=== PATIENT | female | born 1975 | race Caucasian/White ===

== ENCOUNTER 2024-04-11 08:25 | Outpatient (CLI) | payer OTHER, SELFPAY ==
--- NOTE | 2024-05-01 17:01 | P.SLEEP_ITS ---
Sleep Study - Home Unattended Date of Study: 04/11/24 Ordering Provider: Laura Adorno DO Interpreting Provider: Laura Adorno DO Home Sleep Study Type: Watch PAT Height: 1.75 m Weight: 70.307 kg Body Mass Index: 22.8 Neck Circumference (inches): 14.5 [place]: 5 Reason for Sleep Study Migraines Sleep History The patient is a 48-year-old female that had a sleep study ordered for evaluation of sleep apnea. The patient admits to snoring loudly, breathing interruptions while asleep, trouble maintaining sleep and unwanted behaviors during sleep. The patient admits to choking or gasping at night. She denies having trouble breathing on her back. She does have morning headaches. She does have a dry or sore mouth/ throat in the morning. She denies nocturnal heartburn. She does have nocturia. She does have trouble falling asleep. She does have difficulty returning to sleep if she wakes up throughout the night. She does use a hypnotic or sedative. She denies feeling anxious about sleep. She does feel tired or sleepy during the day. He does feel tired in the morning. She denies having the urge to fall asleep during the day. She denies feeling drowsy while driving. She denies sleep paralysis, cataplexy and hypnagogic / hypnopompic hallucinations. She does clench or grind her teeth. She denies kicking or jerking her legs excessively. She denies having a restless feeling in her legs. He goes to bed at 10:30 p.m. on work days and at 11:00 p.m. on her days off. It takes 1 hour to fall asleep. She typically gets 5 hours of sleep per night. Her sleep is a little more restorative on her days off. She denies taking any planned naps. She states she acts out her dreams. She did sleepwalk as a child. She consumes 1-2 cups of caffeinated beverage per day. She denies tobacco and alcohol use. She denies exercising on a regular basis. FORMERLY [facility] Past Medical History Medical History Ulcer Migraine Headache Arthritis Anxiety Allergies Surgical History Surgical History Hx of appendectomy 1997 Family History Family History Mother Depression Anxiety Cancer Father Alcoholism Cancer Heart problem Hypertension Sibling Alcoholism Anxiety Depression Sibling Alcoholism Depression Anxiety Grandparent Cancer Anxiety Depression Grandparent Heart problem Hypertension Grandparent Alcoholism Hypertension Social History Social History Smoking status: Current every day smoker (Currently vaping) Tobacco type: cigarettes and e-cigarettes/vaping Second hand tobacco smoke exposure: Yes Alcohol intake: former Substance use: current Substance use type: marijuana Do You Feel Safe in your Home?: Yes Lack of Transportation: No Lack of Food: Never True Current Housing: I Have Housing Concerned About Future Housing: No Difficulty Paying Gas/Electric Bills: Decline to Answer Difficulty Paying for Meds: Decline to Answer Currently Unemployed: No Education: Associate Degree Difficulty w/ Childcare or Family Care: No Living arrangements: with family Occupation/Education: occupation Gender identity (if verbalized by the patient): Female Agree to blood products: Yes Medications Home Medications ?Medication ?Instructions ?Recorded ?Confirmed ?Type adalimumab 40 mg/0.8 mL See Rx Instructions subcut .COMPLEX 01/06/24 01/06/24 History subcutaneous syringe kit (Humira) gabapentin 300 mg capsule 600 mg PO QHS 01/06/24 01/06/24 History lithium carbonate 300 mg capsule 300 mg PO QHS 01/06/24 01/06/24 History omeprazole 40 mg capsule,delayed 40 mg PO DAILY 01/06/24 01/06/24 History release quetiapine 25 mg tablet 50 mg PO QHS 01/06/24 01/06/24 History spironolactone 25 mg tablet 25 mg PO BID 01/06/24 01/06/24 History vortioxetine 20 mg tablet 20 mg PO DAILY 01/06/24 01/06/24 History (Trintellix) zonisamide 50 mg capsule 50 mg PO BID 01/06/24 01/06/24 History eszopiclone 2 mg tablet (Lunesta) 2 mg PO QHS #1 tablet 01/27/24 01/27/24 Rx Sleep Procedure The sleep study was completed using WatchPAT a technically adequate device with seven channels: peripheral arterial tone, actigraphy, body position, snore, respiratory movement, pulse oximetry, sleep staging, and heart rate. Prior to using the device, the patient received verbal and written instructions for its application and was provided with the help desk phone number for additional telephonic instruction with 24-hour availability of qualified personnel to answer questions. The study was scored using CMS guidelines. Sleep Architecture The total recording time is 8 hrs, 8 min. The total sleep time is 6 hrs, 56 min. Sleep latency is 18 minutes. REM latency is 221 minutes. The patient had 9 episodes of waking. Sleep architecture shows 20.8% deep sleep, 55.1% light sleep, and (as % Total Sleep Time) showed NREM (Light 55.1%; Deep 20.8%), and a 24.1% stage REM. The patient spent 67.9% of total sleep time in the supine posi tion. Sleep efficiency was 85.25. Respiratory Analysis The overall AHI (pAHI 4%:) is 13.8. The central AHI is 2.1. The AHI was 16.9 in NREM and 4.2 in REM sleep. The AHI was 19.4 in Supine and 1.0 in Non-supine sleep. Percent of Shakeel Gupta respirations is 0.0. Oximetry Data The oxygen desaturation index (MISTY 4%:) is 13.5. The mean saturation is 95%, and the lowest saturation is 79%. Time spent with saturation < 88% is 6.6 minutes. Snoring Profile Snoring average intensity is 41 dB. The patient snored above 45 decibels for 32.7 minutes, 7.9% of sleep time. Cardiac Profile The average pulse rate is 52 beats per minutes. The lowest pulse rate is 42 bpm. The highest pulse rate reported is 90 bpm. Atrial fibrillation was not detected. Premature beats occur <0.1 per minute. Assessment and Plan Assessment and Plan (1) [place]STER (obstructive sleep apnea): Code(s): G47.33 - Obstructive sleep apnea (adult) (pediatric) Status: Acute Assessment and Plan: The patient had an overall AHI of 13.8 with desaturation down to 79%. This is consistent with mild sleep apnea. Due to the patient's anxiety, she qualifies for treatment. I recommend that the patient be prescribed Resmed AirSense 11 AutoPAP 5-15 cm H2O, CPAP mask/filters/tubing and heated humidity. This should be used with all episodes of sleep.? Compliance should be reviewed within 31-90 days of starting therapy for usage greater than 4 hours per night greater than 70% of the nights. The patient should be asked about symptoms such as?excessive daytime sleepiness, quality of sleep, decreased nocturia, increased?mental functioning such as memory, mood, and concentration. Data The data obtained during this sleep study is adequate for interpretation. Certification This sleep study has been reviewed by a board certified sleep medicine physician.
[2024-05-01 17:08] VITALS: BMI 22.8
== END 2024-04-12 15:48 | disposition home or self-care (01) ==
LOC: ANHCSM 08:25
PROVIDERS: PCP Family Medicine; Visit Provider Family Medicine
DX: G47.33 Obstructive sleep apnea (adult) (pediatric) (principal); G47.9 Sleep disorder, unspecified
CPT/HCPCS: 95800